=== PATIENT | male | born 1965 | race Caucasian/White ===

== ENCOUNTER 2022-12-20 13:01 | Outpatient (CLI) | payer BC, SELFPAY | END 2022-12-20 13:02 | disposition home or self-care (01) | PROVIDERS: PCP Family Medicine; Visit Provider Family Medicine | DX: E11.9 Type 2 diabetes mellitus without complications (principal); E78.5 Hyperlipidemia, unspecified; I10 Essential (primary) hypertension; Z12.5 Encounter for screening for malignant neoplasm of prostate | CPT/HCPCS: 80053; 80061; 84153; 86803 ==

== ENCOUNTER 2022-12-30 09:42 | Outpatient (CLI) | payer BC, SELFPAY ==
[2022-12-30 15:16] LABS: Total Protein Urine 5 mg/dL
[2022-12-30 15:22] LABS: Microalbumin Urine 1 mg/dL
[2022-12-30 15:25] LABS: Microalbumin Creatinine Ratio 0 mg/g (0-30)
== END 2022-12-30 09:43 | disposition home or self-care (01) ==
PROVIDERS: PCP Family Medicine; Visit Provider Family Medicine
DX: E11.9 Type 2 diabetes mellitus without complications (principal); I10 Essential (primary) hypertension; E78.1 Pure hyperglyceridemia; L30.8 Other specified dermatitis; B35.1 Tinea unguium
CPT/HCPCS: 82043; 82570; 84156

== ENCOUNTER 2024-02-24 07:04 | Outpatient (CLI) | payer OTHER, SELFPAY | END 2024-02-24 07:05 | disposition home or self-care (01) | PROVIDERS: PCP Family Medicine; Visit Provider Family Medicine | DX: Z00.00 Encounter for general adult medical examination without abnormal findings (principal); E78.1 Pure hyperglyceridemia; I10 Essential (primary) hypertension; E11.9 Type 2 diabetes mellitus without complications | CPT/HCPCS: 80053; 80061; 82043; 82570 ==

== ENCOUNTER 2025-04-14 09:50 | Outpatient (CLI) | payer OTHER, SELFPAY | END 2025-04-14 09:51 | disposition home or self-care (01) | LOC: NFLDREF 04-18 17:41 | PROVIDERS: PCP Family Medicine; Referring Provider Family Medicine; Visit Provider Family Medicine | DX: E11.9 Type 2 diabetes mellitus without complications (principal); E78.1 Pure hyperglyceridemia; I10 Essential (primary) hypertension; Z12.5 Encounter for screening for malignant neoplasm of prostate | CPT/HCPCS: 80053; 80061; 82043; 82570; G0103 ==

== ENCOUNTER 2025-06-09 07:17 | Outpatient (CLI) | payer OTHER, SELFPAY ==
--- NOTE | 2025-06-09 08:57 | P.ANES_ITS ---
Anesthesia Charges Start Date/Time Anesthesia Start Date: 06/09/25 Anesthesia Start Time: 08:02 Stop Date/Time Anesthesia Stop Date: 06/09/25 Anesthesia Stop Time: 08:55 Coding CPT Codes CPT Codes: MAGAN LWR INTST NDSC NOS - [id number] ([id number]) P2 - PATIENT W/MILD SYST DISEASE, QK - HEALTH SAFETY COORDINATOR 2-4 CNCRNT ANES PROC, QX - STATUE MAKER SVC W/ MD MED DIRECTION
--- NOTE | 2025-06-09 08:57 | W.ANESCHARGE ---
Anesthesia Charges Start Date/Time Anesthesia Start Date: 06/09/25 Anesthesia Start Time: 08:02 Stop Date/Time Anesthesia Stop Date: 06/09/25 Anesthesia Stop Time: 08:55 Coding CPT Codes CPT Codes: MAGAN LWR INTST NDSC NOS - [id number] ([id number]) P2 - PATIENT W/MILD SYST DISEASE, QK - APPRENTICE PAINTER BRUSH 2-4 CNCRNT ANES PROC, QX - AWS ARCHITECT SVC W/ MD MED DIRECTION
--- NOTE | 2025-06-09 09:34 | P.ANES_ITS ---
Anesthesia Charges Start Date/Time Anesthesia Start Date: 06/09/25 Anesthesia Start Time: 08:02 Stop Date/Time Anesthesia Stop Date: 06/09/25 Anesthesia Stop Time: 08:55 Coding CPT Codes CPT Codes: MAGAN LWR INTST NDSC NOS - [id number] ([id number]) P2 - PATIENT W/MILD SYST DISEASE, QK - ENVIRONMENTAL SERVICES TECHNICIAN 2-4 CNCRNT ANES PROC, QX - SALOON KEEPER SVC W/ MD MED DIRECTION
--- NOTE | 2025-06-09 09:34 | W.ANESCHARGE ---
Anesthesia Charges Start Date/Time Anesthesia Start Date: 06/09/25 Anesthesia Start Time: 08:02 Stop Date/Time Anesthesia Stop Date: 06/09/25 Anesthesia Stop Time: 08:55 Coding CPT Codes CPT Codes: MAGAN LWR INTST NDSC NOS - [id number] ([id number]) P2 - PATIENT W/MILD SYST DISEASE, QK - PARTS PROCESSOR 2-4 CNCRNT ANES PROC, QX - BARREL TESTER AND DRAINER SVC W/ MD MED DIRECTION
== END 2025-06-09 07:18 | disposition home or self-care (01) ==
LOC: OP CLINIC 07:18
PROVIDERS: PCP Family Medicine; Visit Provider Surgery
DX: Z12.11 Encounter for screening for malignant neoplasm of colon (principal); Z86.0100 Personal history of colon polyps, unspecified; D12.0 Benign neoplasm of cecum; D12.2 Benign neoplasm of ascending colon; D12.3 Benign neoplasm of transverse colon; D12.5 Benign neoplasm of sigmoid colon
CPT/HCPCS: 00811; 00812; 45385; 88305; J2704